=== PATIENT | female | born 2000 | race Asian ===

== ENCOUNTER 2025-11-01 02:16 | Emergency (ER) | payer OTHER ==
[~2025-11-01] VITALS: Ht 167.6 cm; Wt 67.0 kg
[2025-11-01 02:37] VITALS: O2SAT 100
[2025-11-01] MEDS: LIDOCAINE HCL 1% 20ML VIAL INFIL ONE (03:33)
[2025-11-01] MEDS: ACETAMINOPHEN 500MG TABLET PO ONE (03:33)
[2025-11-01] MEDS: TETANUS, DIPHTHERIA, PERTUSSIS VAC/PF 0.5ML (>10YR OLD) IM ONE (03:34)
[2025-11-01] MEDS ORDERED: ACET-2708 MT (04:38)
[2025-11-01] MEDS ORDERED: BO1 TP (04:38)
[2025-11-01] MEDS: BACITRACIN ZINC OINT UDPKT TOP ONE (04:49)
[2025-11-01 04:57] VITALS: BP 131/87; PULSE 103; RESP 16; TEMP 36.7; O2SAT 98
== END 2025-11-01 04:59 | disposition home or self-care (01) ==
LOC: ER 02:16
DX: S61.012A Laceration without foreign body of left thumb without damage to nail, initial encounter (principal); X58.XXXA Exposure to other specified factors, initial encounter; Y93.89 Activity, other specified; Y92.89 Other specified places as the place of occurrence of the external cause; Y99.8 Other external cause status
CPT/HCPCS: 90715; 12002; 90471; 99283; J2003; Z7610 ×2